=== PATIENT | male | born 1945 | race Caucasian/White ===

== ENCOUNTER 2020-10-13 13:25 | Emergency (ER) | payer MEDICARE, OTHER ==
[2020-10-13] MEDS ORDERED: Ketorolac 60 MG/2 ML SDV IM ONE (13:35)
--- NOTE | 2020-10-13 13:40 | EDM.PDOC ---
ED HPI GENERAL MEDICAL PROBLEM - General Chief Complaint: Lower Extremity Injury/Pain Stated Complaint: knee pain Time Seen by Provider: 10/13/20 13:30 Source of Information: Reports: Patient History Limitations: Reports: No Limitations - History of Present Illness INITIAL COMMENTS - FREE TEXT/NARRATIVE: This patient presents to the ED for evaluation of knee pain. He states he had a knee replacement a couple of years ago that was a revision of a knee replacement had that had been done a couple years prior to that. Today he was out walking his dog at a leisurely pace when "something happened" and he feels as though his knee is not right. Since that time he has not been able to bear weight, the joint has become quite swollen and tender. He had a similar occurrence eli roximately 2 weeks ago where he had pain that was not related to any particular activity which seemed to resolve. He has denied all falls, traumas, slips, twists, and states today's event was spontaneous. - Related Data Allergies Allergy/AdvReac Type Severity Reaction Status Date / Time codeine Allergy Hives Verified 10/13/20 13:52 latex Allergy Hives Verified 10/13/20 13:52 pepper (genus Capsicum) Allergy Hives Verified 10/13/20 13:53 Sulfa (Sulfonamide Allergy Hives Verified 10/13/20 13:51 Antibiotics) Review of Systems - Review of Systems Review Of Systems: See Below Constitutional: Reports: No Symptoms Eyes: Reports: No Symptoms Ears: Reports: No Symptoms Nose: Reports: No Symptoms Mouth/Throat: Reports: No Symptoms Respiratory: Reports: No Symptoms Cardiovascular: Reports: Lightheadedness Musculoskeletal: Reports: Joint Pain (Right knee pain), Joint Swelling (Right knee swelling) Skin: Reports: No Symptoms Neurological: Reports: No Symptoms ED EXAM, GENERAL - Physical Exam Exam: See Below Exam Limited By: No Limitations General Appearance: Alert, No Apparent Distress Eye Exam: Bilateral Eye: Normal Inspection, PERRL Ears: Normal External Exam Nose: Normal Inspection Throat/Mouth: Normal Inspection Head: Atraumatic, Normocephalic Neck: Normal Inspection Respiratory/Chest: No Respiratory Distress, No Accessory Muscle Use Extremities: Other (Significant swelling around entire right knee. He is exquisitely tender with touch and does not tolerate palpation well. He does not localize pain but it is rather global. Distal CMS is intact.) Course - Orders/Labs/Meds Orders: Active Orders 24 hr Category Date Time Status Knee wo Cont Rt [CT] Stat Exams 10/13/20 13:35 Taken Meds: Medications Discontinued Medications Generic Name Dose Route Start Last Admin Trade Name Lauren PRN Reason Stop Dose Admin Hydromorphone HCl 1 mg 10/13/20 14:20 10/13/20 14:20 Hydromorphone 2 Mg/Ml Sdv IM 10/13/20 14:21 1 mg ONETIME ONE Administration Ketorolac Tromethamine 60 mg 10/13/20 13:35 10/13/20 13:30 Ketorolac 60 Mg/2 Ml Sdv IM 10/13/20 13:36 60 mg ONETIME ONE Administration - Radiology Interpretation Free Text/Narrative:: CT scan of right knee reveals lucency at the bone cement interface of the medial tibial plateau component suspicious for loosening. Both the femoral and patellar components are well seated. - Re-Assessments/Exams Free Text/Narrative Re-Assessment/Exam: 10/13/20 14:36 This patient presents to the emergency department for evaluation of sudden onset knee pain. CT scan of his right knee which has been replaced does reveal some change in the lucency at the bone cement interface. This is suspicious for some loosening of the joint replacement. This certainly would be cause for the sudden onset of his pain and effusion. He is visiting from out of town and is scheduled to return home tomorrow. He will be placed in a knee immobilizer and fitted with crutches. He should have no weightbearing and should be seen by his engine specialist upon arrival back home. Instructions were given for his car ride home to take frequent stops, move around outside of the car as much as he is able to drink stops, and keep his joint iced while riding. He should use nonsteroidal anti-inflammatories as well as Percocet for his more severe pain. The patient was stable at the time of discharge. Departure - Departure Time of Disposition: 14:55 Disposition: DC/[facility] to [facility] Condition: Fair Clinical Impression: Pain in knee region after replacement of knee joint - Discharge Information *PRESCRIPTION DRUG MONITORING PROGRAM REVIEWED*: Not Applicable *COPY OF PRESCRIPTION DRUG MONITORING REPORT IN PATIENT RANDY: Not Applicable Instructions: Crutch Use, Adult, [id number], How to Use a Knee Immobilizer, [id number] Forms: ED Department Discharge - My Orders Last 24 Hours: My Active Orders 10/13/20 13:35 Knee wo Cont Rt [CT] Stat - Assessment/Plan Last 24 Hours: My Active Orders 10/13/20 13:35 Knee wo Cont Rt [CT] Stat
[2020-10-13] MEDS ORDERED: Acetaminophen/oxyCODONE 325-5 MG Tab ONE (13:45)
[2020-10-13] MEDS ORDERED: HYDROmorphone 2 MG/ML SDV IM ONE (14:20)
--- NOTE | 2020-10-15 09:24 | CT ---
DATE OF SERVICE: 10/13/20 CLINICAL DATA: knee pain RIGHT KNEE CT: Multislice axial acquisition was performed. Axial images and sagittal and coronal reformations are reviewed. The patient is status post right total knee arthroplasty. There is significant beam-hardening and streak artifact associated with this. There is subtle lucency adjacent to the tibial component suggesting the possibility of loosening. No fracture is identified. There is a large joint effusion. [id number] [facility]
== END 2020-10-13 14:46 | disposition home or self-care (01) ==
LOC: LB.ED 13:25
DX: M25.561 Pain in right knee (principal); G89.18 Other acute postprocedural pain; Z88.5 Allergy status to narcotic agent; Z91.040 Latex allergy status; Z88.2 Allergy status to sulfonamides; Z91.018 Allergy to other foods; Z96.651 Presence of right artificial knee joint
CPT/HCPCS: 73700-RT; 96372; 99283-25; A9270-GY; J1170; J1885